=== PATIENT | female | born 1975 | race Two or more races ===

== ENCOUNTER 2018-08-13 03:20 | Inpatient (IN) | payer OTHER ==
[~2018-08-13] VITALS: Ht 162.6 cm; Wt 3.2 kg
[2018-08-16] MEDS ORDERED: PRENATAL 19 TA1 EAC1 (12:52)
== END 2018-08-16 15:12 | disposition home or self-care (01) | DRG 785 ==
LOC: OB/GYN 03:20 → LDR 03:20 → OB/GYN 07:36
PROVIDERS: Obstetrics & Gynecology Obstetrics
PROC: 0UL70ZZ Occlusion of Bilateral Fallopian Tubes, Open Approach (ICD-10-PCS; 2018-08-13)
PROC: 4A1HXCZ Monitoring of Products of Conception, Cardiac Rate, External Approach (ICD-10-PCS; 2018-08-13)
PROC: 10D00Z1 Extraction of Products of Conception, Low, Open Approach (ICD-10-PCS; principal; 2018-08-13 07:00)
DX: O42.013 Preterm premature rupture of membranes, onset of labor within 24 hours of rupture, third trimester (principal); O64.1XX0 Obstructed labor due to breech presentation, not applicable or unspecified; Z3A.36 36 weeks gestation of pregnancy; Z37.0 Single live birth; Z22.330 Carrier of Group B streptococcus; Z30.2 Encounter for sterilization